=== PATIENT | female | born 1940 | race Caucasian/White ===

== ENCOUNTER 2017-01-25 05:13 | Emergency (ER) | payer MEDICARE, OTHER ==
[~2017-01-25] VITALS: Ht 152.4 cm; Wt 54.0 kg
[~2017-01-25 05:13] MED LIST: ADVA250A INH; ALPR.25 PO; AMBI10TA PO; CARD120T4 PO; CEPH500C3 PO; LEXA5SOL PO; LORTA5 PO; PERC5TAB12 PO; PROT40TA PO
[2017-01-25 05:20] VITALS: BP 143/84; PULSE 95; RESP 20; TEMP 98.3; O2SAT 97
[2017-01-25] MEDS ORDERED: PROT40TA PO (05:44)
[2017-01-25] MEDS ORDERED: ALPR.25 PO (05:44)
[2017-01-25] MEDS ORDERED: ADVA250A INH (05:44)
[2017-01-25] MEDS ORDERED: AMBI10TA PO (05:44)
[2017-01-25] MEDS ORDERED: LEXA20TA PO (05:44)
[2017-01-25] MEDS ORDERED: TRAM50 PO (05:44)
[2017-01-25] MEDS ORDERED: VENTAER INH (05:45)
[2017-01-25 05:56] LABS: BASOPHIL # 0.1 TH/MM3 (0-0.2); BASOPHIL % 0.5 % (0.0-2.0); EOSINOPHIL # 0.6 TH/MM3 (0-0.4); EOSINOPHIL % 5.5 % (0.0-4.0); HEMATOCRIT 39.4 % (35.0-46.0); HEMOGLOBIN 13.2 GM/DL (11.6-15.3); LYMPH % 17.1 % (9.0-44.0); LYMPHOCYTE # 1.9 TH/MM3 (1.0-4.8); MEAN CELL VOLUME 84.9 FL (80.0-100.0); MEAN CORPUSCULAR HEMOGLOBIN 28.5 PG (27.0-34.0); MEAN CORPUSCULAR HGB CONC 33.5 % (32.0-36.0); MEAN PLATELET VOLUME 8.2 FL (7.0-11.0); MONOCYTE # 0.4 TH/MM3 (0-0.9); NEUT % 72.9 % (16.0-70.0); PLATELET COUNT 230 TH/MM3 (150-450); RED BLOOD COUNT 4.64 MIL/MM3 (4.00-5.30); RED CELL DISTRIBUTION WIDTH 14.1 % (11.6-17.2)
[2017-01-25] MEDS ORDERED: MIRA3350 PO (05:56)
[2017-01-25] MEDS ORDERED: FAMOTIDINE 20 MG/2 ML VIAL IV PUSH SCH (06:00)
[2017-01-25] MEDS ORDERED: ONDANSETRON HCL 4 MG/2 ML VIAL IV PUSH ONE ×2 (06:00→09:45)
[2017-01-25] MEDS ORDERED: SODIUM CHLOR 0.9% 1000 ML INJ 1,000 ML IV ONE (06:00)
[2017-01-25 06:04] LABS: CHLORIDE 104 MEQ/L (98-107); SODIUM (NA) 139 MEQ/L (136-145)
--- NOTE | 2017-01-25 06:05 | PD ---
HPI Chief Complaint: GI Complaint Time Seen by Provider: 05:17 Travel History International Travel<30 days: No Contact w/Intl Traveler<30days: No Traveled to known affect area: No History of Present Illness HPI pt is 76 yr old female wit a Hx of diverticulitis and perforation with free air in her colon that led to surgical repair 2014 , pt now reports tonight she has had pressure in her rectum and tried to manually disempact herself with limited success and then took colace x2 caps without releif of her symptoms. pain is in the right lateral abdo and she feels bloated , no LLQ pain , no fever no trauma. SHE HAS a gastroenteritis MD but has not seen him for this complaint. PFSH Past Medical History Anemia: Yes Arthritis: Yes Asthma: Yes Anxiety: Yes Depression: Yes Cancer: No Cardiovascular Problems: Yes High Cholesterol: Yes COPD: Yes Diabetes: No Diminished Hearing: No Diverticulitis: Yes Endocrine: No Gastrointestinal Disorders: Yes (diverticulitis) GERD: Yes Genitourinary: No Headaches: Yes Hepatitis: No Hiatal Hernia: No Hypertension: Yes Immune Disorder: No Neurologic: No Psychiatric: No Reproductive: No Respiratory: Yes (ASTHMA, COPD) Thyroid Disease: No Ulcer: Yes Influenza Vaccination: Yes ?: Not : 4 Para: 3 Miscarriage: 1 Past Surgical History Abdominal Surgery: Yes (colon resection with ileostomy) AICD: No Body Medical Devices: erica in l arm Gynecologic Surgery: Yes (hysterectomy) Hysterectomy: Yes Joint Replacement: No Neurologic Surgery: Yes (LAMINECTOMY) Pacemaker: No Other Surgery: Yes Social History Alcohol Use: No Tobacco Use: No Substance Use: No Allergies-Medications (Allergen,Severity, Reaction): Coded Allergies: codeine (Unverified Allergy, Mild, RASH, 01/25/17) Sulfa (Sulfonamide Antibiotics) (Unverified Allergy, Unknown, 01/25/17) Reported Meds & Prescriptions Reported Meds & Active Scripts Active Movantik (Naloxegol) 12.5 Mg Tab 12.5 Mg PO DAILY Percocet (Oxycodone-Acetaminophen) 5-325 mg Tab 1 Tab PO Q6H PRN Flagyl (Metronidazole) 500 Mg Tab 500 Mg PO TID 7 Days Cipro (Ciprofloxacin HCl) 500 Mg Tab 500 Mg PO BID 7 Days Reported Miralax Powder (Polyethylene Glycol 3350 Powder) 17 Gm Powd 17 Gm PO DAILY Mix and dissolve one measuring cap-ful (17 grams) in water or juice. Ventolin Hfa 18 GM Inh (Albuterol Sulfate) 90 Mcg/Act Aer 2 Puff INH Q4-6H PRN Ultram (Tramadol HCl) 50 Mg Tab 50 Mg PO Q4H PRN Ambien (Zolpidem Tartrate) 10 Mg Tab 10 Mg PO HS PRN Advair Diskus Inh (Fluticasone-Salmeterol Inh) 250-50 Mcg/Blist Aer 2 Puff INH BID Rinse mouth after use. Lexapro (Escitalopram Oxalate) 20 Mg Tab 20 Mg PO DAILY Xanax (Alprazolam) 0.25 Mg Tab 0.25 Mg PO BID Protonix (Pantoprazole Sodium) 40 Mg Tab 40 Mg PO DAILY Review of Systems Except as stated in HPI: all other systems reviewed are Neg Gastrointestinal: Positive: Nausea, Vomiting, Abdominal Pain, Constipation Physical Exam Narrative GENERAL: non toxic in no apparent distress , pt keeps wretching no vomitus SKIN: Warm and dry. HEAD: Atraumatic. Normocephalic. EYES: Pupils equal and round. No scleral icterus. No injection or drainage. ENT: No nasal bleeding or discharge. Mucous membranes pink and moist. NECK: Trachea midline. No JVD. CARDIOVASCULAR: Regular rate and rhythm. RESPIRATORY: No accessory muscle use. Clear to auscultation. Breath sounds equal bilaterally. GASTROINTESTINAL: Abdomen soft, RUQ and lateral right tenderness no LLQ pain - RECTAL form stool no immediately in recatal vault but further up in her sigmiod area . GUIAIC negative tender, nondistended. Hepatic and splenic margins not palpable. MUSCULOSKELETAL: Extremities without clubbing, cyanosis, or edema. No obvious deformities. NEUROLOGICAL: Awake and alert. No obvious cranial nerve deficits. Motor grossly within normal limits. Five out of 5 muscle strength in the arms and legs. Normal speech. PSYCHIATRIC: Appropriate mood and affect; insight and judgment normal. Data Data Last Documented VS Vital Signs Date Time Temp Pulse Resp B/P (MAP) Pulse Ox O2 Delivery O2 Flow Rate FiO2 01/25/17 09:56 87 18 126/76 (93) 96 01/25/17 06:56 Room Air 01/25/17 06:51 98.1 Orders Orders Complete Blood Count With Diff (01/25/17 05:40) Comprehensive Metabolic Panel (01/25/17 05:40) Lipase (01/25/17 05:40) Abdomen, Flat & Upright (01/25/17 ) Chest, Single Ap (01/25/17 ) Ondansetron Inj (Zofran Inj) (01/25/17 06:00) Famotidine Inj (Pepcid Inj) (01/25/17 06:00) Sodium Chlor 0.9% 1000 Ml Inj (Ns 1000 M (01/25/17 06:00) Morphine Inj (Morphine Inj) (01/25/17 06:45) Ct Abd/Pel W Iv Contrast(Rout) (01/25/17 ) Oral Contrast - Adult (01/25/17 06:42) Diatrizoate Liq ( Gastroview Liq) (01/25/17 06:42) Diatrizoate Liq ( Gastroview Liq) (01/25/17 06:43) Iohexol 350 Inj (Omnipaque 350 Inj) (01/25/17 08:15) Ed Discharge Order (01/25/17 09:28) Ondansetron Inj (Zofran Inj) (01/25/17 09:45) Labs Laboratory Tests Test 01/25/17 05:45 White Blood Count 11.0 TH/MM3 Red Blood Count 4.64 MIL/MM3 Hemoglobin 13.2 GM/DL Hematocrit 39.4 % Mean Corpuscular Volume 84.9 FL Mean Corpuscular Hemoglobin 28.5 PG Mean Corpuscular Hemoglobin Concent 33.5 % Red Cell Distribution Width 14.1 % Platelet Count 230 TH/MM3 Mean Platelet Volume 8.2 FL Neutrophils (%) (Auto) 72.9 % Lymphocytes (%) (Auto) 17.1 % Monocytes (%) (Auto) 4.0 % Eosinophils (%) (Auto) 5.5 % Basophils (%) (Auto) 0.5 % Neutrophils # (Auto) 8.0 TH/MM3 Lymphocytes # (Auto) 1.9 TH/MM3 Monocytes # (Auto) 0.4 TH/MM3 Eosinophils # (Auto) 0.6 TH/MM3 Basophils # (Auto) 0.1 TH/MM3 CBC Comment DIFF FINAL Differential Comment Blood Urea Nitrogen 17 MG/DL Creatinine 0.79 MG/DL Random Glucose 139 MG/DL Total Protein 7.0 GM/DL Albumin 3.4 GM/DL Calcium Level 9.4 MG/DL Alkaline Phosphatase 109 U/L Aspartate Amino Transf (AST/SGOT) 17 U/L Alanine Aminotransferase (ALT/SGPT) 21 U/L Total Bilirubin 0.3 MG/DL Sodium Level 139 MEQ/L Potassium Level 3.8 MEQ/L Chloride Level 104 MEQ/L Carbon Dioxide Level 25.7 MEQ/L Anion Gap 9 MEQ/L Estimat Glomerular Filtration Rate 71 ML/MIN Lipase 185 U/L MDM Medical Decision Making Medical Screen Exam Complete: Yes Emergency Medical Condition: Yes Differential Diagnosis constipation vs perforated viscous due to diverticulitis , vs pancreatitis , vs GB disease, other Narrative Course Labs are within normal limits and KUB shows Stool distending colon more likely transverse colon , Rectal exam minimal stool in the rectal vault soft formed not rock like. KUB doesnt show loops of bowel, CT indicated due to prior Hx ofdiverticultis with perforation and right sided diverticulitis , PO prep and pt given Zofran and pepcid IV without relief of symptoms , Then CT ordered and Morphine 4 mg IVP given pt was requesting morphine when I first examined her . Pt will be signed out to [facility] Scripts Naloxegol (Movantik) 12.5 Mg Tab 12.5 MG PO DAILY for Prevent Constipation, #3 TAB 0 Refills Prov: Mejia Leger MD 01/25/17 Oxycodone-Acetaminophen (Percocet) 5-325 mg Tab 1 TAB PO Q6H Y for PAIN SCALE 6 TO 10, #12 TAB 0 Refills Prov: Mejia Leger MD 01/25/17 Metronidazole (Flagyl) 500 Mg Tab 500 MG PO TID for Infection for 7 Days, TAB 0 Refills Prov: Mejia Leger MD 01/25/17 Ciprofloxacin (Cipro) 500 Mg Tab 500 MG PO BID for Infection for 7 Days, #14 TAB 0 Refills Prov: Mejia Leger MD 01/25/17 Rory Marques MD Jan 25, 2017 06:05
[2017-01-25 06:07] LABS: CALCIUM 9.4 MG/DL (8.5-10.1)
[2017-01-25 06:08] LABS: ALBUMIN 3.4 GM/DL (3.4-5.0); BICARBONATE 25.7 MEQ/L (21.0-32.0); BLOOD UREA NITROGEN 17 MG/DL (7-18); GLUCOSE,RANDOM 139 MG/DL (74-106); LIPASE 185 U/L (73-393)
[2017-01-25 06:11] LABS: ALT (GPT) 21 U/L (10-53); AST (GOT) 17 U/L (15-37); CREATININE 0.79 MG/DL (0.50-1.00); GLOMERULAR FILTRATION RATE 71 ML/MIN (>89)
[2017-01-25 06:12] LABS: TOTAL BILIRUBIN ADULT 0.3 MG/DL (0.2-1.0)
[2017-01-25 06:13] LABS: ALKALINE PHOSPHATASE 109 U/L (45-117)
[2017-01-25 06:33] VITALS: BP 141/78; PULSE 84; RESP 18; O2SAT 96
--- NOTE | 2017-01-25 06:37 | RADRPT ---
EXAM DATE/TIME: 01/25/2017 06:11 [facility] COMPARISON: ABDOMEN FLAT & UPRIGHT, April 04, 2015, 11:27. INDICATIONS : Abdominal pain and constipation. MEDICAL HISTORY : Chronic obstructive pulmonary disease. SURGICAL HISTORY : Colostomy reversal. ENCOUNTER: Initial ACUITY: 1 week PAIN SCORE: 10/10 LOCATION: all quadrants. FINDINGS: Supine and upright views of the abdomen were performed. There appears to be a moderate amount stool in the colon. The abdominal bowel gas pattern is normal. No air fluid levels are seen. No abnormal masses, calcifications, or organomegaly is seen. The visualized lower lungs are clear. No evidence of free intraperitoneal gas. Degenerative changes seen in the lumbar spine. CONCLUSION: Moderate stool in the colon. Martin Stanford MD on January 25, 2017 at 6:35 Board Certified Radiologist. This report was verified electronically.
--- NOTE | 2017-01-25 06:38 | RADRPT ---
EXAM DATE/TIME: 01/25/2017 06:11 [facility] COMPARISON: No previous studies available for comparison. INDICATIONS : Chest and abdominal pain. MEDICAL HISTORY : Chronic obstructive pulmonary disease. SURGICAL HISTORY : Colostomy reversal. ENCOUNTER: Initial ACUITY: 1 week PAIN SCORE: 5/10 LOCATION: Bilateral lower chest FINDINGS: The heart size is normal. There is diffuse increased interstitial markings. There some focal increase d density at the left lateral base with silhouetting of the left lateral hemidiaphragm. CONCLUSION: Diffuse increased tissue markings but there are some underlying interstitial disease or bronchitis. M ild edema has a similar appearance. Martin Stanford MD on January 25, 2017 at 6:36 Board Certified Radiologist. This report was verified electronically.
[2017-01-25] MEDS ORDERED: DIATRIZOATE MEGLUM/DIATRIZOATE SOD 9 ML CUP ONE ×2 (06:42→06:43)
[2017-01-25] MEDS ORDERED: MORPHINE SULFATE 2 MG/ML INJ IV PUSH ONE (06:45)
[2017-01-25 06:51] VITALS: BP 133/92; PULSE 92; RESP 16; TEMP 98.1; O2SAT 100
[2017-01-25 06:56] VITALS: BP 143/69; PULSE 92; RESP 18; O2SAT 98
[2017-01-25] MEDS ORDERED: IOHEXOL 350 MG/ML 10 ML VIAL (for RAD DIAG) IVCONTRAST ONE (08:15)
--- NOTE | 2017-01-25 09:03 | RADRPT ---
EXAM DATE/TIME: 01/25/2017 08:01 [facility] COMPARISON: No previous studies available for comparison. INDICATIONS : Constipation x 4 days. Diffuse abdominal pain, nausea and vomiting today. IV CONTRAST: 85 cc Omnipaque 350 (iohexol) IV ORAL CONTRAST: Partial prescribed oral contrast ingested. RADIATION DOSE: 17.66 CTDIvol (mGy) MEDICAL HISTORY : Diverticulitis. Hypertension. SURGICAL HISTORY : Colon resection. Hysterectomy.Laminectomy. ENCOUNTER: Initial ACUITY: 4 - 6 days PAIN SCALE: 8/10 LOCATION: Abdomen TECHNIQUE: Volumetric scanning of the abdomen and pelvis was performed. Using automated exposure control and ad justment of the mA and/or kV according to patient size, radiation dose was kept as low as reasonably achievable to obtain optimal diagnostic quality images. DICOM format image data is available electro nically for review and comparison. FINDINGS: LOWER LUNGS: The visualized lower lungs are clear. LIVER: Homogeneously lower density without lesion. There is no dilation of the biliary tree. No calcified gallstones. SPLEEN: Normal size without lesion other large cyst lower aspect.. PANCREAS: Within normal limits. KIDNEYS: Normal in size and shape. There is no mass, stone or hydronephrosis. ADRENAL GLANDS: Within normal limits. VASCULAR: There is no aortic aneurysm. BOWEL/MESENTERY: There is a line of suture along the rectosigmoid junction. Small duodenal diverticulum. Low lying rig ht hemicolon. The appendix is on the right side of the rectosigmoid junction . No acute inflammation identified throughout the mesentery. ABDOMINAL WALL: Within normal limits. RETROPERITONEUM: There is no lymphadenopathy. BLADDER: No wall thickening or mass. REPRODUCTIVE: Within normal limits. INGUINAL: There is no lymphadenopathy or hernia. MUSCULOSKELETAL: Within normal limits for patient age. CONCLUSION: Previous colonic surgery. No residual inflammation identified throughout the mesentery. Prominent cys t in the spleen. Mildly fatty liver. No etiology for abdominal pain is identified.. Jose Ramon Marinelli MD on January 25, 2017 at 8:57 Board Certified Radiologist. This report was verified electronically.
[2017-01-25] MEDS ORDERED: METR-1 PO (09:26)
[2017-01-25] MEDS ORDERED: CIPR-9 PO (09:26)
[2017-01-25] MEDS ORDERED: PERC5TAB12 PO (09:26)
--- NOTE | 2017-01-25 09:27 | PD ---
Data Data Last Documented VS Vital Signs Date Time Temp Pulse Resp B/P (MAP) Pulse Ox O2 Delivery O2 Flow Rate FiO2 01/25/17 09:56 87 18 126/76 (93) 96 01/25/17 06:56 Room Air 01/25/17 06:51 98.1 Orders Orders Complete Blood Count With Diff (01/25/17 05:40) Comprehensive Metabolic Panel (01/25/17 05:40) Lipase (01/25/17 05:40) Abdomen, Flat & Upright (01/25/17 ) Chest, Single Ap (01/25/17 ) Ondansetron Inj (Zofran Inj) (01/25/17 06:00) Famotidine Inj (Pepcid Inj) (01/25/17 06:00) Sodium Chlor 0.9% 1000 Ml Inj (Ns 1000 M (01/25/17 06:00) Morphine Inj (Morphine Inj) (01/25/17 06:45) Ct Abd/Pel W Iv Contrast(Rout) (01/25/17 ) Oral Contrast - Adult (01/25/17 06:42) Diatrizoate Liq ( Gastroview Liq) (01/25/17 06:42) Diatrizoate Liq ( Gastroview Liq) (01/25/17 06:43) Iohexol 350 Inj (Omnipaque 350 Inj) (01/25/17 08:15) Ed Discharge Order (01/25/17 09:28) Ondansetron Inj (Zofran Inj) (01/25/17 09:45) Labs Laboratory Tests Test 01/25/17 05:45 White Blood Count 11.0 TH/MM3 Red Blood Count 4.64 MIL/MM3 Hemoglobin 13.2 GM/DL Hematocrit 39.4 % Mean Corpuscular Volume 84.9 FL Mean Corpuscular Hemoglobin 28.5 PG Mean Corpuscular Hemoglobin Concent 33.5 % Red Cell Distribution Width 14.1 % Platelet Count 230 TH/MM3 Mean Platelet Volume 8.2 FL Neutrophils (%) (Auto) 72.9 % Lymphocytes (%) (Auto) 17.1 % Monocytes (%) (Auto) 4.0 % Eosinophils (%) (Auto) 5.5 % Basophils (%) (Auto) 0.5 % Neutrophils # (Auto) 8.0 TH/MM3 Lymphocytes # (Auto) 1.9 TH/MM3 Monocytes # (Auto) 0.4 TH/MM3 Eosinophils # (Auto) 0.6 TH/MM3 Basophils # (Auto) 0.1 TH/MM3 CBC Comment DIFF FINAL Differential Comment Blood Urea Nitrogen 17 MG/DL Creatinine 0.79 MG/DL Random Glucose 139 MG/DL Total Protein 7.0 GM/DL Albumin 3.4 GM/DL Calcium Level 9.4 MG/DL Alkaline Phosphatase 109 U/L Aspartate Amino Transf (AST/SGOT) 17 U/L Alanine Aminotransferase (ALT/SGPT) 21 U/L Total Bilirubin 0.3 MG/DL Sodium Level 139 MEQ/L Potassium Level 3.8 MEQ/L Chloride Level 104 MEQ/L Carbon Dioxide Level 25.7 MEQ/L Anion Gap 9 MEQ/L Estimat Glomerular Filtration Rate 71 ML/MIN Lipase 185 U/L MDM Medical Record Reviewed: Yes Supervised Visit with MARITZA: No Narrative Course please refer to the outgoing provider's note. The patient was found couple rested by me after the results of the CT scan were made available. The patient' s workup details were discussed with her and with her son. In coordination with suddenly developed a care plan that included Cipro Flagyl short course of Percocet due to diarrhea as a more common side effects from Lortab and a course of Movantik. Pt and son were quite pleased with the plan which also included a plan for follow-up visit with Dr. Jaramillo. My concern is a trace subclinical diverticulitis as the nature of today's presentation is evidently quite similar to that which previously resulted in perforated diverticulitis. We also discussed interventions constipation. CBC & BMP Diagram 01/25/17 05:45 Total Protein 7.0, Albumin 3.4, Calcium Level 9.4, Alkaline Phosphatase 109, Aspartate Amino Transf (AST/SGOT) 17, Alanine Aminotransferase (ALT/SGPT) 21, Total Bilirubin 0.3 Last Impressions Chest X-Ray 01/25/17 0000 Signed Impressions: Service Date/Time: January 06:11 - CONCLUSION: Diffuse increased tissue markings but there are some underlying interstitial disease or bronchitis. Mild edema has a similar appearance. Martin Stanford MD Abdomen/Pelvis CT 01/25/17 0000 Signed Impressions: Service Date/Time: January 08:01 - CONCLUSION: Previous colonic surgery. No residual inflammation identified throughout the mesentery. Prominent cyst in the spleen. Mildly fatty liver. No etiology for abdominal pain is identified.. Jose Ramon Marinelli MD Abdomen X-Ray 01/25/17 0000 Signed Impressions: Service Date/Time: , January 25, 2017 06:11 - CONCLUSION: Moderate stool in the colon. Martin Stanford MD Diagnosis Primary Impression: Abdominal pain Qualified Codes: R10.9 - Unspecified abdominal pain Additional Impression: Constipation Qualified Codes: K59.00 - Constipation, unspecified Referrals: Martin Jaramillo MD 1 week Med/Other Pt SpecificInfo: Prescription(s) given Scripts Naloxegol (Movantik) 12.5 Mg Tab 12.5 MG PO DAILY for Prevent Constipation, #3 TAB 0 Refills Prov: Mejia Leger MD 01/25/17 Oxycodone-Acetaminophen (Percocet) 5-325 mg Tab 1 TAB PO Q6H Y for PAIN SCALE 6 TO 10, #12 TAB 0 Refills Prov: Mejia Leger MD 01/25/17 Metronidazole (Flagyl) 500 Mg Tab 500 MG PO TID for Infection for 7 Days, TAB 0 Refills Prov: Mejia Leger MD 01/25/17 Ciprofloxacin (Cipro) 500 Mg Tab 500 MG PO BID for Infection for 7 Days, #14 TAB 0 Refills Prov: Mejia Leger MD 01/25/17 Disposition: DISCHARGE HOME Condition: Stable Mejia Leger MD Jan 25, 2017 09:27
[2017-01-25] MEDS ORDERED: NALO1TAB PO (09:36)
[2017-01-25 09:56] VITALS: BP 126/76
== END 2017-01-25 09:57 | disposition home or self-care (01) ==
LOC: PHED 05:13
DX: R10.32 Left lower quadrant pain (principal); K59.00 Constipation, unspecified; D64.9 Anemia, unspecified; J44.9 Chronic obstructive pulmonary disease, unspecified; K57.92 Diverticulitis of intestine, part unspecified, without perforation or abscess without bleeding; I10 Essential (primary) hypertension
CPT/HCPCS: 71010; 74020; 74177; 80053; 83690; 85025; 96361; 96374; 96375; 99285; J2270; J2405; J7030; Q9963; Q9967